=== PATIENT | female | born 1980 | race Caucasian/White ===

== ENCOUNTER 2017-04-08 07:53 | Emergency (ER) | payer BC ==
[2016-05-09 06:48] VITALS: BMI 33.5
[~2017-04-08 07:53] MED LIST: ADDERALL 30 MG30 MG PO; ALDACTONE25 MG PO; EFFEXOR XR150 MG PO; IBUPROFEN200 MG PO; LEVOXYL75 MCG PO; NORCO 5/325 TAB1 TA1 PO; PRENATAL COMPLE1 TAB PO; SOMA350 MG PO; TUMS500 MG PO; ZOFRAN4 MG PO
== END 2017-04-08 08:49 | disposition home or self-care (01) ==
LOC: D.ER 07:53
DX: N76.0 Acute vaginitis (principal); E03.9 Hypothyroidism, unspecified

== ENCOUNTER 2018-09-08 07:02 | Day surgery (SDC) | payer BC ==
[~2018-09-08] VITALS: Ht 162.6 cm; Wt 95.7 kg
--- NOTE | ~2018-09-08 | OP ---
PATIENT NAME: TED RAMIREZ MEDICAL RECORD: [id number] :80 LOCATION:D.OPS ADMISSION DATE: SURGEON: ARNIE CHAN MD DATE OF OPERATION: 09/08/2018 SURGEON: Arnie Chan MD ANESTHESIA: TIVA by Burak White CRNA PROCEDURE: Cystoscopy and intravesical Botox injection. FINDINGS: Diffusely inflamed bladder consistent with interstitial cystitis, bilateral single ureteral orifices. No bladder tumors. DIAGNOSIS: Urge urinary incontinence. BLOOD LOSS: None. CLINICAL HISTORY: This is a 38-year-old female, G2, P1, A1, who has symptoms of urinary urge incontinence as well as stress urinary incontinence. She has nocturia times 3-4 and she also uses up to 8 pads per day, some of which are soaked through. She has tried Myrbetriq, Toviaz, and VESIcare and another overactive bladder drug without success. She had a tubal in May of 2017, from an ectopic. This required removal of the affected tube. She still wants to have another child. Therefore, we will not be addressing the stress urinary incontinence until she finishes having children. However, she does want control of the urge incontinence. She also has suprapubic pain and dyspareunia, which is suggestive of interstitial cystitis. Nevertheless, she is scheduled today to have intravesical Botox injection to try to control her urge incontinence. She is not allergic to any medications. She was given Ance[employer] agricultural extension specialist to the OR. DESCRIPTION OF PROCEDURE: The patient was given IV sedation. She was placed into dorsal lithotomy position and prepped and draped. A 21-Lao cystoscope with 30-degree lens was used for visualization. The findings are as outlined above. At 10 different locations, excluding the ureteral orifices in the trigonal region, we injected 1 mL of Botox solution. Each mL had 10 units of Botox dissolved in it in preservative-free injectable normal saline. She does have diffuse bladder inflammation. I suspect we probably should give her Rimso at some point also. Once the procedure was done, the bladder was fully emptied and the patient was awakened and brought back to the preoperative holding area. TRANSINT:[id number] Voice Confirmation ID: [id number] DOCUMENT ID: [id number] ARNIE CHAN MD at 1217 CC: [id number] DICTATION DATE: 09/08/18 1108 SUPERVISOR WHIPPED TOPPING: 09/08/18 1133 [facility] [address] [id number]
[~2018-09-08 07:02] MED LIST changes: +SYNTHROID75 MCG
[2018-09-08 07:22] LABS: HEMATOCRIT 37.4 % (36.0-48.0); HEMOGLOBIN 12.6 g/dL (12-16); MCH 29.6 pg (26.0-34.0); MCHC 33.7 g/dL (31.0-37.0); MCV 87.8 fL (80.0-100.0); MEAN PLATELET VOLUME 8.7 fL (7.4-10.4); RBC 4.26 10x6/uL (4.00-5.40); RDW 12.7 % (11.5-14.5); WBC 9.8 10x3/uL (4.8-10.8)
[2018-09-08 08:05] VITALS: BP 126/73; Ht 162.6 cm; Wt 95.7 kg
[2018-09-08 10:01] LABS: HCG URINE NEGATIVE (NEGATIVE)
== END 2018-09-08 11:50 | disposition home or self-care (01) ==
LOC: D.OPS 07:02 → D.PAN 10:45 → D.OPS 11:50 → D.PAN 12:30
PROVIDERS: Anesthesiology; Urology
DX: N39.41 Urge incontinence (principal); Z01.812 Encounter for preprocedural laboratory examination

== ENCOUNTER 2019-03-13 14:15 | Inpatient (IN) | payer BC | END 2019-03-15 18:04 | disposition home or self-care (01) | DRG 494 | LOC: D.ER 14:15 → D.MS 16:22 | PROVIDERS: ADMIT Emergency Medicine | PROC: 0QSJ04Z Reposition Right Fibula with Internal Fixation Device, Open Approach (ICD-10-PCS; principal; 2019-03-14) | PROC: 0QSG04Z Reposition Right Tibia with Internal Fixation Device, Open Approach (ICD-10-PCS; 2019-03-14) | DX: S82.841A Displaced bimalleolar fracture of right lower leg, initial encounter for closed fracture (principal); W19.XXXA Unspecified fall, initial encounter; E03.9 Hypothyroidism, unspecified; D64.9 Anemia, unspecified ==

== ENCOUNTER 2020-03-23 19:24 | Emergency (ER) | payer BC ==
[~2020-03-23] VITALS: Ht 162.6 cm; Wt 95.3 kg
[~2020-03-23 19:24] MED LIST changes: +HYDROCODON-ACE1 EAC2 PO; +VYVANSE70 MG PO
[2020-03-23 19:39] VITALS: Ht 162.6 cm; Wt 95.3 kg
[2020-03-23 20:07] LABS: BASOPHILS 0.3 % (0-2); EOSINOPHILS 1.5 % (0-7); HEMATOCRIT 38.2 % (36.0-48.0); HEMOGLOBIN 12.6 g/dL (12-16); IMMATURE GRANULOCYTES 0.3 % (0-5); LYMPHOCYTES 32.9 % (15-50); MCH 30.1 pg (26.0-34.0); MCV 91.2 fL (80.0-100.0); MEAN PLATELET VOLUME 8.8 fL (7.4-10.4); MONOCYTES 6.2 % (2-11); NEUTROPHILS 58.8 % (40-80); RBC 4.19 10x6/uL (4.00-5.40); RDW 13.2 % (11.5-14.5); WBC 12.5 10x3/uL (4.8-10.8)
[2020-03-23 20:08] LABS: PLATELET COUNT 406 10x3/uL (130-400)
[2020-03-23 20:11] LABS: HCG URINE NEGATIVE (NEGATIVE)
[2020-03-23 20:12] LABS: BILIRUBIN NEGATIVE (NEGATIVE); GLUCOSE NEGATIVE (NEGATIVE); KETONE NEGATIVE (NEGATIVE); NITRITE NEGATIVE (NEGATIVE); UROBILINOGEN NORMAL (NORMAL)
[2020-03-23 20:13] LABS: BACTERIA MANY /hpf (NEGATIVE); WHITE CELLS - URINE 25-50 /hpf (NEGATIVE)
[2020-03-23 20:17] LABS: ANION GAP 12.9 mmol/L (8-16); CALCIUM 8.7 mg/dL (8.5-10.1); CARBON DIOXIDE 26.6 mmol/L (21.0-32.0); CREATININE - SERUM 0.9 mg/dL (0.6-1.3); POTASSIUM - SERUM 3.5 mmol/L (3.5-5.1)
[2020-03-23 20:23] LABS: ALBUMIN 4.3 g/dL (3.4-5.0); BILIRUBIN - TOTAL 0.52 mg/dL (0.2-1.3); PROTEIN - SERUM 8.4 g/dL (6.4-8.2)
[2020-03-23] MEDS ORDERED: KEFLEX500 MG PO (21:17)
[2020-03-23 22:33] VITALS: BP 138/92
== END 2020-03-23 22:34 | disposition home or self-care (01) ==
LOC: D.ER 19:24
PROVIDERS: Family Medicine
DX: S36.62XA Contusion of rectum, initial encounter (principal); R10.9 Unspecified abdominal pain; D72.829 Elevated white blood cell count, unspecified; N39.0 Urinary tract infection, site not specified; E07.9 Disorder of thyroid, unspecified; X58.XXXA Exposure to other specified factors, initial encounter

== ENCOUNTER 2020-04-03 21:16 | Emergency (ER) | payer BC ==
[~2020-04-03] VITALS: Ht 162.6 cm; Wt 95.0 kg
[~2020-04-03 21:16] MED LIST changes: +KEFLEX500 MG PO
[2020-04-03 21:37] VITALS: Ht 162.6 cm; Wt 95.0 kg
[2020-04-03 22:40] LABS: BASOPHILS 0.2 % (0-2); EOSINOPHILS 1.5 % (0-7); HEMATOCRIT 38.4 % (36.0-48.0); HEMOGLOBIN 13.1 g/dL (12-16); IMMATURE GRANULOCYTES 0.2 % (0-5); LYMPHOCYTES 31.4 % (15-50); MCH 30.8 pg (26.0-34.0); MCHC 34.1 g/dL (31.0-37.0); MCV 90.1 fL (80.0-100.0); MEAN PLATELET VOLUME 8.7 fL (7.4-10.4); MONOCYTES 7.1 % (2-11); NEUTROPHILS 59.6 % (40-80); PLATELET COUNT 442 10x3/uL (130-400); RBC 4.26 10x6/uL (4.00-5.40); RDW 12.6 % (11.5-14.5); WBC 12.9 10x3/uL (4.8-10.8)
[2020-04-03 22:46] LABS: BACTERIA FEW /hpf (NEGATIVE); BILIRUBIN NEGATIVE (NEGATIVE); EPITHELIAL CELLS 0-5 /hpf (0-5); GLUCOSE NEGATIVE (NEGATIVE); KETONE NEGATIVE (NEGATIVE); NITRITE NEGATIVE (NEGATIVE); RED CELLS - URINE 0-5 /hpf (0-5); SPECIFIC GRAVITY 1.025 (1.005-1.020); UROBILINOGEN NORMAL (NORMAL)
[2020-04-03 22:47] LABS: CALC OSMOLALITY 282 mosm/kg (275-300); CALCIUM 8.8 mg/dL (8.5-10.1); CARBON DIOXIDE 26.2 mmol/L (21.0-32.0); CHLORIDE - SERUM 103 mmol/L (98-107); CREATININE - SERUM 0.8 mg/dL (0.6-1.3); GLUCOSE 152 mg/dL (74-106); POTASSIUM - SERUM 3.5 mmol/L (3.5-5.1); SODIUM 140 mmol/L (136-145); UREA NITROGEN 15 mg/dL (7-18); eGFR NON AFRICAN AMERICAN 85 mL/min (90-120)
[2020-04-03 22:52] LABS: ALBUMIN 3.9 g/dL (3.4-5.0); ALKALINE PHOSPHATASE 96 U/L (30-120); ALT (SGPT) 48 U/L (10-68); BILIRUBIN - TOTAL 0.42 mg/dL (0.2-1.3); C-REACTIVE PROTEIN 1.8 mg/dL (0.0-0.9); PROTEIN - SERUM 8.1 g/dL (6.4-8.2)
[2020-04-04] MEDS ORDERED: CLEOCIN HCL300 MG PO (01:08)
[2020-04-04] MEDS ORDERED: HYDROCODON-ACE1 EAC7 PO (01:08)
[2020-04-04 01:45] VITALS: BP 130/89
== END 2020-04-04 01:45 | disposition home or self-care (01) ==
LOC: D.ER 21:16
PROVIDERS: Family Medicine
DX: L02.211 Cutaneous abscess of abdominal wall (principal); R10.30 Lower abdominal pain, unspecified; R79.82 Elevated C-reactive protein (CRP); D72.829 Elevated white blood cell count, unspecified; E07.9 Disorder of thyroid, unspecified

== ENCOUNTER 2020-04-19 10:04 | Inpatient (IN) | payer BC ==
[~2020-04-19] VITALS: Ht 162.6 cm; Wt 96.2 kg
[2020-04-19] VITALS (8 sets, daily range): BP systolic 96–128; BP diastolic 50–80; Ht 162.6 cm; Wt 96.2 kg
--- NOTE | ~2020-04-19 | OP ---
PATIENT NAME: TED RAMIREZ MEDICAL RECORD: [id number] :80 LOCATION:[facility] D.1278 ADMISSION DATE: SURGEON: TREVOR GERONIMO MD DATE OF OPERATION: 04/19/2020 PREOPERATIVE DIAGNOSIS: Open wound from abdominal wall abscess. POSTOPERATIVE DIAGNOSIS: Open wound from abdominal wall abscess. PROCEDURE: Wound debridement and repacking. SURGEON: Trevor Geronimo MD ANESTHESIOLOGIST: Dr. Mo. ANESTHESIA: General. FINDINGS: Necrotic edges noted at the edge of defect. There is a serosanguineous discharge. The defect is 2 cm with 4 cm in length with 7 cm depth. At the base of this defect, there is a 5-1/2 cm tract moving cephalad and left lateral fascia is intact. SPECIMEN REMOVED: Portions of necrotic tissue and foreign body (permanent ligature at base of defect). SPECIMEN DISPOSITION: All specimens to pathology. ESTIMATED BLOOD LOSS: Minimal. FLUIDS: 500 cc of lactated Ringer's. URINE OUTPUT: Quantity sufficient void prior to this procedure. COMPLICATIONS: None. DRAINS: None. INDICATIONS: The patient is a 39-year-old female who previously had incision and drainage. The patient presented to clinic for dressing change. The patient was anxious and unable to tolerate inspection or packing of the wound. The patient is consented for wound debridement and repacking. DESCRIPTION OF PROCEDURE: After informed consent was assured, the patient was taken to the operating room where anesthetic is obtained. Dressing is removed packing removed. Necrotic skin edges encountered. There is a dusky tissue contained within poor granulation at this point. Using pickups and Metzenbaum scissors, the edges of the incision are cut back until healthy tissue was encountered. Curettes were now used to debride necrotic adipose. The wound was measured and inspected. After this had been completed, half strength Dakin solution now soaks a 2-inch Kerlix and this is packed within the incision. Sterile dressing is applied. The patient was awakened and went to the recovery room in stable condition. She will remain overnight until home health and wound care can be arranged. TRANSINT:[id number] Voice Confirmation ID: [id number] DOCUMENT ID: [id number] OPERATIVE REPORT [id number] TED RAMIREZ TREVOR GERONIMO MD CC: [id number] DICTATION DATE: 04/19/20 184 OCCUPATIONAL THERAPY AIDES TEACHER: 04/20/20 0402 [facility] [address] [place] [address]
[~2020-04-19 10:04] MED LIST changes: +AMOXICILLIN875 MG PO; +CELEXA40 MG PO; +CLEOCIN HCL300 MG PO; +HYDROCODON-ACE1 EAC7 PO; -SYNTHROID75 MCG; +SYNTHROID75 MCG PO
[2020-04-19 11:54] LABS: CALC OSMOLALITY 278 mosm/kg (275-300); CALCIUM 8.9 mg/dL (8.5-10.1); CARBON DIOXIDE 29.4 mmol/L (21.0-32.0); CHLORIDE - SERUM 104 mmol/L (98-107); CREATININE - SERUM 0.7 mg/dL (0.6-1.3); GLUCOSE 113 mg/dL (74-106); SODIUM 139 mmol/L (136-145); UREA NITROGEN 12 mg/dL (7-18); eGFR NON AFRICAN AMERICAN > 90 mL/min (90-120)
[2020-04-19 11:55] LABS: HCG SERUM NEGATIVE (NEGATIVE)
[2020-04-19 12:15] LABS: BASOPHILS 0.2 % (0-2); EOSINOPHILS 0.6 % (0-7); HEMATOCRIT 32.7 % (36.0-48.0); HEMOGLOBIN 10.7 g/dL (12-16); IMMATURE GRANULOCYTES 0.3 % (0-5); LYMPHOCYTES 29.6 % (15-50); MCH 30.2 pg (26.0-34.0); MCHC 32.7 g/dL (31.0-37.0); MCV 92.4 fL (80.0-100.0); MEAN PLATELET VOLUME 8.7 fL (7.4-10.4); MONOCYTES 6.3 % (2-11); PLATELET COUNT 391 10x3/uL (130-400); RBC 3.54 10x6/uL (4.00-5.40)
[2020-04-19 12:16] LABS: WBC 13.1 10x3/uL (4.8-10.8)
--- NOTE | 2020-04-19 14:25 | NUR ---
RECEIVED PT FROM VIA BED TO ROOM 1278. BED LOCKED AND PLACED IN LOW POSITION. PT AWAKE. AAO X 3. VSS. HRRR WITHOUT AUDIBLE MURMUR. BBS CLEAR. BS X 4. ABDOMEN SOFT. ABDOMINAL DRESSING DRY WITHOUT DRAINAGE NOTED. SMALL AMT OF VAGINAL BLEEDING NOTED ON PERIPAD. PT STATES "I STARTED MY PERIOD". NEG HOMANS' SIGN. PPP. MILD, NON-PITTING EDEMA NOTED TO FEET. PIV OF LR INFUSING AT 125 ML/HR. SITE CLEAR TO LEFT FOREARM. O2 ON PER N/C AT 2 LITERS. PT ORIENTED TO ROOM, BED, AND CALL LIGHT. SR UP X2. CALL LIGHT IN REACH. PT STATES HAS QUESTIONS TO WHY PT IS STAYING OVERNIGHT. WILL NOTIFY DR GERONIMO. PT FRIEND AT BEDSIDE.
[2020-04-19] MEDS ORDERED: TYLENOL #4 W/CO1 TAB PO (14:43)
--- NOTE | 2020-04-19 14:45 | NUR ---
PT REQUESTS AND RECEIVES SPRITE AND THERMOSTAT TURNED DOWN.
--- NOTE | 2020-04-19 14:51 | NUR ---
RECEIVED CALL FROM PT SISTER REQUESTING INFORMATION AND FOR DR GERONIMO TO CALL HER ON PT STATUS. INFORMED SISTER THAT INFORMATION CANNOT BE GIVEN UNLESS PIN NUMBER RECEIVED. PT INFORMED AND GIVES PT SISTER PIN NUMBER. STATUS REPORT GIVEN TO PT SISTER AT PT BEDSIDE, INCLUDING PROCEDURE DONE AND PT STAYING OVERNIGHT PER MD ORDER FOR IV ANTIBIOTICS. REQUESTS DR GERONIMO TO CALL HER.
--- NOTE | 2020-04-19 15:10 | NUR ---
DR CAMARENA'S CLINIC CALLED. NURSE PROVIDES PAGER NUMBER TO CALL DR CAMARENA.
--- NOTE | 2020-04-19 15:11 | NUR ---
DR MIGUE ESPINAL
--- NOTE | 2020-04-19 15:15 | NUR ---
DR GERONIMO NOTIFIED OF PT SISTER REQUESTING DR GERONIMO TO CALL HER.
--- NOTE | 2020-04-19 15:20 | NUR ---
ENTERED ROOM- NOTED THAT SWELLING ABOVE IV SITE- IV DRIP STOPPED AND CATH REMOVED WITH CATH TIP INTACT.
--- NOTE | 2020-04-19 15:35 | NUR ---
IV RESITED RT HAND USING 20G CATH WITHOUT DIFFICULTY. UP NS AT PREVIOUS DRIP RATE.
--- NOTE | 2020-04-19 16:37 | NUR ---
CAMILLE CALHOUN, PT SISTER, CALLS. PROVIDES PT PIN NUMBER. REQUESTING INFORMATION/STATUS ON PATIENT. THIS NURSE IN ANOTHER PT ROOM AT THIS TIME AND INFORMED MS. HURDSON THAT THIS NURSE WILL CALL PT IN THE NEXT FEW MINUTES SOON FINISHED WITH CARE OF CURRENT PATIENT.
--- NOTE | 2020-04-19 16:48 | NUR ---
CALL RETURNED TO CAMILLE CALHOUN, PT SISTER. SHE PROVIDES PT PIN NUMBER. PT STATUS REPORT GIVEN, INCLUDING PROCEDURE PT HAD DONE TODAY, PT STAYING OVERNIGHT PER MD ORDER AND WILL SEE PT IN AM WITH POSSIBLE DISCHARGE TOMORROW WITH HOME HEALTH TO SEE PT FOR DRESSING CHANGES. MS. CALHOUN STATES NOT HAPPY WITH DR GERONIMO NOT RETURNING PHONE CALL. AGAIN, REQUESTS DR GERONIMO TO CALL MS. CALHOUN. [facility] HAS CALLED CLINIC REQUESTING DR GERONIMO TO CALL HER. INFORMED MS. CALHOUN THAT I WOULD ASK DR GERONIMO TO CALL HER. STATES "THAT'S OK, I WILL CALL GUI SAINZ OR DR PHIPPS". STATES "I DON'T WANT MY SISTER DISCHARGED UNTIL THERE HAS BEEN A SECOND OPINION". STATES "I WANT DR GERONIMO'S INFECTION RATE". OFFERED TO TRANSFER MS. CALHOUN TO ADMINISTRATION. STATES "THAT IS OK, I WILL CALL DR PHIPPS MYSELF". OFFERED TO TRANSFER MS. CALHOUN TO THE OUTSIDE CUTTER TO REPORT HER CONCERNS. AGREES AND PHONE CALL TRANSFERED TO JONG SUNOUTSIDE CUTTER.
--- NOTE | 2020-04-19 16:52 | NUR ---
MS. CALHOUN, PT SISTER CALLS UNIT. STATES "THE STRETCH PRESS OPERATOR DIDN'T KNOW MUCH ABOUT WHAT WAS GOING ON". STATES "I WANT INFECTION CONTROL TO REPORT DR GERONIMO'S INFECTION RATE AND I WANT A SECOND OPINION BEFORE MY SISTER IS DISCHARGED." REQUESTS THIS NURSE TO ASK DR GERONIMO TO CALL HER SO SHE CAN SPEAK TO HIM PERSONALLY. WILL NOTIFY DR GERONIMO.
--- NOTE | 2020-04-19 17:00 | NUR ---
DR GERONIMO NOTIFIED OF PT SISTER REQUESTS.
--- NOTE | 2020-04-19 17:20 | NUR ---
THIS NURSE TO PT ROOM. PT REQUESTS PIN NUMBER BE CHANGED. ADMISSIONS NOTIFIED. AND TO RETURN CALL ON NUMBER, IF IT CAN BE CHANGED.
--- NOTE | 2020-04-19 17:40 | NUR ---
ADMISSIONS CALLS. STATES PIN NUMBER CANNOT BE CHANGED, BUT PT CAN BE CHANGED TO CONFIDENTIAL STATUS. PT NOTIFIED. STATES "IT WILL BE FINE, LEAVE IT IT IS". STATES "I CALLED MY SISTER AND I DON'T THINK SHE WILL CALL BACK UP HERE". PT FRIEND STATES "HER SISTER IS MAD AT HER (THE PATIENT) BECAUSE SHE HASN'T KEPT THEM INFORMED ON WHAT HAS BEEN GOING ON". STATES "THEY MISUNDERSTOOD SOME THINGS". PT APOLOGIZES SEVERAL TIMES FOR PT SISTER CALLING. PT STATES "DR GERONIMO HAS BEEN SO GOOD TO ME THROUGH ALL OF THIS".
[2020-04-19 17:41] LABS: ALBUMIN 3.6 g/dL (3.4-5.0); ALKALINE PHOSPHATASE 94 U/L (30-120); ALT (SGPT) 68 U/L (10-68); CALC OSMOLALITY 272 mosm/kg (275-300); CALCIUM 8.5 mg/dL (8.5-10.1); CARBON DIOXIDE 27.2 mmol/L (21.0-32.0); CHLORIDE - SERUM 103 mmol/L (98-107); CREATININE - SERUM 0.7 mg/dL (0.6-1.3); GLUCOSE 144 mg/dL (74-106); POTASSIUM - SERUM 4.2 mmol/L (3.5-5.1); PROTEIN - SERUM 7.3 g/dL (6.4-8.2); SODIUM 135 mmol/L (136-145); UREA NITROGEN 13 mg/dL (7-18); eGFR NON AFRICAN AMERICAN > 90 mL/min (90-120)
--- NOTE | 2020-04-19 18:01 | NUR ---
PT C/O ABDOMINAL PAIN/BURNING/SHARP OF "6" ON 0-10 PAIN SCALE. NORCO 5/325 GIVEN PO ORDERED. PT INSTRUCTED ON MED. VERBALIZES UNDERSTANDING.
--- NOTE | 2020-04-19 18:05 | NUR ---
DR MIGUE ESPINAL.
--- NOTE | 2020-04-19 18:07 | NUR ---
Trevor BALDWIN NP WITH DR CAMARENA RETURNS PAGE. NOTIFIED OF ORDERED CONSULT. STATES PATIENT WAS SEEN YESTERDAY BY CARDIOLOGY.
--- NOTE | 2020-04-19 18:53 | NUR ---
DR GERONIMO TO ROOM. VISITS WITH PT. DISCUSSES POC WITH PT. PT IN AGREEMENT.
--- NOTE | 2020-04-19 19:00 | NUR ---
REPORT RECEIVED FROM ALEXEI VICENTE
--- NOTE | 2020-04-19 19:56 | NUR ---
PATIENT LYING QUIETLY IN BED WITH EYES CLOSED. EASILY AROUSED. VITAL SIGNS AND ASSESSMENT DONE. OXYGEN SATURATION 90% ON RA. OXYGEN APPLIED AT 2L/NC. OXYGEN SATURATION INCREASED TO 97%. VITAL SIGNS NOW STABLE. PATIENT STATES PAIN 6 OUT OF 10. PATIENT REPOSITIONED HERSELF IN BED FOR COMFORT. DRESSING TO ABDOMEN. DRESSING DRY AND INTACT. PATIENT AMBULATED TO BATHROOM WITH STEADY GAIT. VOIDED 300 CC'S OF YELLOW URINE WITHOUT DIFFICULTY. PATIENT AMBULATED BACK TO BED WITH STEADY GAIT. DENIES ANY FURTHER NEEDS OR CONCERNS. BED IN LOWEST POSITION, SIDE RAILS UP X 2, C/L AND WATER WITHIN REACH.
--- NOTE | 2020-04-19 21:54 | NUR ---
PATIENT SITTING UP IN BED. CLINDAMYCIN 900 MG ADMINISTERED IVPB OVER 60 MINUTES.
--- NOTE | 2020-04-19 21:57 | NUR ---
PATIENT STATES PAIN 8 OUT OF 10. NORCO 5/325 ADMINISTERED PO. PATIENT DENIES FURTHER NEEDS. BED IN LOWEST POSITION, SIDE RAILS UP X 2, C/L AND WATER WITHIN REACH.
--- NOTE | 2020-04-19 22:42 | NUR ---
PATIENT LYING IN BED. PATIENT REQUESTS MEDICATION TO SLEEP. AMBIEN 10 MG ADMINISTERED PO. PATIENT DENIES ANY FURTHER NEEDS. BED IN LOWEST POSITION, SIDE RAILS UP X 2, C/L AND WATER WITHIN REACH.
--- NOTE | 2020-04-20 00:50 | NUR ---
PATIENT LYING IN BED WITH EYES CLOSED. RESPIRATIONS AT EASE. 02 @ 2L/MIN VIA NASAL CANULA. BED IN LOWEST POSITION, SIDE RAILS UP X 2, C/L AND WATER WITHIN REACH.
--- NOTE | 2020-04-20 02:01 | NUR ---
PATIENT LYING IN BED WITH EYES CLOSED. RESPIRATIONS AT EASE. PATIENT HAD TAKEN OXYGEN OFF. OXYGEN SATURATION CHECKED AT THIS TIME. OXYGEN SATURATION 94% ON RA. OXYGEN REMAINS OFF. WILL CONTINUE TO MONITOR. PATIENT DENIES PAIN AT THIS TIME. DENIES ANY FURTHER NEEDS. BED IN LOWEST POSITION, SIDE RAILS UP X 2, C/L AND WATER WITHIN REACH.
[2020-04-20 04:00] VITALS: BP 119/71
--- NOTE | 2020-04-20 04:01 | NUR ---
PATIENT LYING IN BED WITH EYES CLOSED. EASILY AROUSED. VITAL SIGNS DONE. PATIENT DENIES PAIN. DENIES ANY FURTHER NEEDS. BED IN LOWEST POSITION, SIDE RAILS UP X2, C/L AND WATER WITHIN REACH.
--- NOTE | 2020-04-20 05:56 | NUR ---
PATIENT LYING IN BED WITH EYES CLOSED. EASILY AROUSED. CLINDAMYCIN 900 MG ADMINISTERED IVPB OVER 60 MINUTES. PATIENT DENIES PAIN. DENIES ANY FURTHER CONCERNS. BED IN LOWEST POSITION, SIDE RAILS UP X 2, C/L AND WATE WITHIN REACH.
--- NOTE | 2020-04-20 07:40 | NUR ---
PT'S SISTER CALLS UNIT, REQUESTS TO BE NOTIFIED WHEN MD ROUNDS "SO THAT SHE CAN BE IN ROOM WITH PT AND BE HER SISTERS ADVOCATE BEFORE SHE GETS TO GO HOME." SHE WAS INFORMED THAT NURSING STAFF DID NOT KNOW WHEN MD WOULD ROUND AND THAT IS WISHED TO BE PRESENT UPON THOSE ROUNDS WOULD NEED TO BE PRESENT WHEN MD ROUNDED. STATES THAT SHE LIVES 3 MINUTES FROM HOSPITAL. REMINDED THAT SHE WOULD ALSO HAVE TO BE SCREEN UPON ARRIVAL TO UNIT.
--- NOTE | 2020-04-20 08:26 | NUR ---
SHIFT ASSESSMENT COMPLETED PER FLOWSHEET. VSS. C/O ABD AND INCISIONAL DISCOMFORT 05/22. MEDICATED PER ORDER AND PT REQUEST. BREATH SOUNDS CLEAR AND EQUAL BILATERALLY. INCENTIVE SPIROMETER DONE WITH GOOD EFFORT, REFUSES SCD'S. BOWEL SOUNDS PRESENT AND ACTIVE X4. PT REPORTS THAT SHE IS VOIDING AND PASSING FLATUS WITHOUT DIFFICULTY. POC REVIEWED WITH PT, VERBALIZES UNDERSTANDING AND DENIES QUESTIONS. PT TAKES CALL FROM [employer] WHILE RN IN ROOM. PER [employer] [employer] BEVERAGE SERVER HH ADMIT CAN NOT BE DONE UNTIL FRIDAY, PT REPORTS THAT SHE HAS FAMILY MEMBERS WHO CAN ASSIST WITH DRSG CHANGE PERIODICALLY. STATES THAT HER SISTER IN LAW IS A SUPERVISOR DOCK AND IS AVAILABLE TOMORROW FOR WOUND CARE. WILL NOTIFY DR. GERONIMO. DISCUSSED WITH PT THAT HER SISTER, MELVI, HAD CALLED UNIT AND REQUESTED THAT RN SPEAK WITH HER. PT STATES THAT SHE DOESN'T WANT RN TO DISCUSS HER CARE WITH HER SISTER AND STATES THAT HER SISTER CAN CONTACT HER WITH QUESTIONS. SPRITE PROVIDED. DENIES NEEDS. BED IN LOW POSITION WITH SRUP X2. CALL LIGHT AND PHONE WITHIN REACH. WILL CONTINUE TO MONITOR.
[2020-04-20 08:28] VITALS: BP 130/69
--- NOTE | 2020-04-20 09:05 | NUR ---
DR GERONIMO PHONES UNIT AND STATES HE IS ON HIS WAY TO CHANGE PT'S DRESSING. ORDER RECIEVED FOR 1MG-2MG DILAUDID IV PRN NOW FOR PAIN WITH DRESSING CHANGE. ORDER ALSO RECIEVED TO ADMIN 1MG XANAX PO x1 NOW FOR ANXIETY WITH DRESSING CHANGE, AND OBTAIN SUPPLIES FOR DRESSING CHANGE; CURLEX, ABD PADS, AND TAPE.
--- NOTE | 2020-04-20 09:07 | NUR ---
CALLS VIA CALL LIGHT, REQUEST RN NOTIFY DR. GERONIMO THAT SHE NEEDS TO D/C HOME LISSY D/T FAMILY ISSUES. DR. GERONIMO ON PHONE WITH Flako LIZ RN AT THIS TIME AND NOTIFIED. PER DR. GERONIMO HE IS EN ROUTE TO UNIT.
--- NOTE | 2020-04-20 09:10 | NUR ---
PT NOTIFIED THAT MD EN ROUTE TO HOSPITAL, VERBALIZES UNDERSTANDING.
--- NOTE | 2020-04-20 09:25 | NUR ---
DR. GERONIMO ON UNIT. PT UPDATED ON POC AND AGREEABLE TO TAKE MEDS PRIOR TO DRSG CHANGE. C/O ABD AND INCISIONAL DISCOMFORT FOLLOWING NORCO WELL. HYDROMORPHONE GIVEN PER ORDER. PT EDUCATED ON MEDS AND VERBALIZES UNDERSTANDING.
--- NOTE | 2020-04-20 09:36 | NUR ---
DR. GERONIMO AT BEDSIDE. DRSG REMOVED AND DRSG CHANGE PERFORMED BY DR. GERONIMO. DR. GERONIMO NOTIFIED THAT PT'S WTJODE-MH-VIK IS A WOOD PATTERNMAKER APPRENTICE AND IS AVAILBE TO PREFORM DRSG CHANGE TOMORROW D/T HOME HEALTH BEING UNABLE TO ADMIT UNTIL FRIDAY.
--- NOTE | 2020-04-20 09:48 | NUR ---
PAIN REASSESSMENT COMPLETED, 11/22. RESTING OCCASIONALLY WITH EYES CLOSED, RESPRIRATIONS REGULAR AND UNLABORED, NO S/S OF DISTRESS NOTED. PT VERBALIZES THAT SHE CAN FOLLOW UP WITH DR. GERONIMO ON FRIDAY.
--- NOTE | 2020-04-20 10:23 | NUR ---
VERBAL AND WRITTEN DISCHARGE INSTRUCTIONS PROVIDED TO PT WITH REINFORCEMENT TEACHING PROVIDED ON DRSG CHANGE AND S/S TO REPORT TO MD. VERBALIZES UNDERSTANDING AND DENIES QUESTIONS. PT STATES THAT SHE IS AWAITING SOMEONE TO COME PICK HER UP.
--- NOTE | 2020-04-20 11:03 | NUR ---
CALLS VIA CALL LIGHT, REQUESTS W/C OFF UNIT. OFF UNIT WITH THIS RN IN STABLE CONDITION TO AWAITING CAR.
== END 2020-04-20 11:03 | disposition home or self-care (01) | DRG 603 ==
LOC: D.OPS 10:04 → D.LD 10:04 → D.OPS 11:45 → D.LD 13:36 → D.OPS 14:00 → D.LD 14:29
PROVIDERS: ADMIT Obstetrics & Gynecology; ATTEND Obstetrics & Gynecology
PROC: 0HC7XZZ Extirpation of Matter from Abdomen Skin, External Approach (ICD-10-PCS; 2020-04-19)
PROC: 0H97XZZ Drainage of Abdomen Skin, External Approach (ICD-10-PCS; principal; 2020-04-19 11:45)
DX: L02.211 Cutaneous abscess of abdominal wall (principal)